=== PATIENT | male | born 2000 | race Caucasian/White ===

== ENCOUNTER 2024-02-27 14:44 | Emergency (ER) | payer BC ==
[2024-02-27] MEDS ORDERED: fentaNYL 100 MCG/2 ML SDV IVPUSH ONE (14:53)
[2024-02-27] MEDS ORDERED: Midazolam 1 MG/ML 2 ML SDV IVPUSH ONE (14:54)
[2024-02-27] MEDS: Ketorolac 15 MG/ML SDV IVPUSH ONE (15:39)
== END 2024-02-27 15:49 | disposition home or self-care (01) ==
LOC: FB.ED 14:44
DX: S43.102A Unspecified dislocation of left acromioclavicular joint, initial encounter (principal); W19.XXXA Unspecified fall, initial encounter; Y93.64 Activity, baseball
CPT/HCPCS: 73030; 96374; 99283; J1885

== ENCOUNTER 2024-08-13 23:40 | Emergency (ER) | payer BC ==
[2024-08-13] MEDS ORDERED: Codeine/guaiFENesin 100mg-10 MG/5 ML Soln 118 ML Bottle PO ONE (23:41)
[2024-08-13] MEDS ORDERED: Azithromycin 250 MG Tab PO ONE (23:41)
== END 2024-08-14 00:40 | disposition home or self-care (01) ==
LOC: FB.ED 23:40
DX: J20.9 Acute bronchitis, unspecified (principal)
CPT/HCPCS: 87428; 99284; A9270; 99283